=== PATIENT | male | born 1965 | race African-American/Black ===

== ENCOUNTER → 2020-03-12 13:50 | Outpatient (BNVA) | payer OTHER, SELFPAY | PROVIDERS: PCP Family Medicine; Visit Provider Physician Assistant | DX: Z96.652 Presence of left artificial knee joint (principal) | CPT/HCPCS: 99212 ==

== ENCOUNTER → 2020-04-09 12:55 | Outpatient (BNVA) | payer OTHER, SELFPAY | PROVIDERS: PCP Family Medicine; Referring Provider Family Medicine; Visit Provider Orthopaedic Surgery | DX: Z96.652 Presence of left artificial knee joint (principal) | CPT/HCPCS: 99212 ==

== ENCOUNTER 2020-09-16 08:34 | Outpatient (REF) | payer OTHER, SELFPAY ==
--- NOTE | ~2020-09-16 | XR_ITS ---
EXAMINATION: AP BILATERAL KNEE. LEFT KNEE. CLINICAL INFORMATION: Left knee pain COMPARISON: Left knee and AP knee descending 07/24/2019 TECHNIQUE: AP bilateral knee 1 view. Left knee 1 view. FINDINGS: AP BILATERAL KNEE: There is interval total left knee prosthesis prosthetic components in satisfactory alignment. No loosening seen. Mild loss of medial compartment joint space of right knee is noted. No bony erosive changes. LEFT KNEE: There is a total knee arthroplasty with prosthetic components in satisfactory alignment. No bony erosive changes. There is mild suprapatellar effusion. There is mild superior patellar spurring. XR/XR knee standing BI IMPRESSION: New total left knee arthroplasty in satisfactory alignment. There is mild suprapatellar effusion. Mild degenerative changes medial compartment right knee.
--- NOTE | ~2020-09-16 | XR_ITS ---
EXAMINATION: AP BILATERAL KNEE. LEFT KNEE. CLINICAL INFORMATION: Left knee pain COMPARISON: Left knee and AP knee descending 07/24/2019 TECHNIQUE: AP bilateral knee 1 view. Left knee 1 view. FINDINGS: AP BILATERAL KNEE: There is interval total left knee prosthesis prosthetic components in satisfactory alignment. No loosening seen. Mild loss of medial compartment joint space of right knee is noted. No bony erosive changes. LEFT KNEE: There is a total knee arthroplasty with prosthetic components in satisfactory alignment. No bony erosive changes. There is mild suprapatellar effusion. There is mild superior patellar spurring. XR/XR knee LT 2V IMPRESSION: New total left knee arthroplasty in satisfactory alignment. There is mild suprapatellar effusion. Mild degenerative changes medial compartment right knee.
== END 2020-09-16 08:35 | disposition home or self-care (01) ==
LOC: HO.HOSX 08:34
PROVIDERS: Visit Provider Orthopaedic Surgery
DX: T84.84XA Pain due to internal orthopedic prosthetic devices, implants and grafts, initial encounter (principal); M25.561 Pain in right knee; Z96.652 Presence of left artificial knee joint
CPT/HCPCS: 73560; 73565; 99212

== ENCOUNTER → 2021-02-13 09:34 | Outpatient (BNVA) | payer OTHER, SELFPAY | PROVIDERS: Visit Provider Orthopaedic Surgery | DX: Z47.1 Aftercare following joint replacement surgery (principal); Z96.652 Presence of left artificial knee joint | CPT/HCPCS: 99212 ==

== ENCOUNTER 2021-10-09 08:47 | Outpatient (REF) | payer OTHER, SELFPAY ==
--- NOTE | ~2021-10-09 | XR_ITS ---
EXAMINATION: XR LEFT KNEE CLINICAL INFORMATION: Pain left knee. COMPARISON: None. TECHNIQUE: AP bilateral knee standing. [place] view left knee, 1 view. FINDINGS: AP bilateral knee standing, 1 view reveals a total left knee prosthesis with the prosthetic components in satisfactory alignment. There is mild loss of medial compartment joint space right knee. No periarticular spurring or bony erosive changes. The soft tissues are normal. Patellofemoral view right knee reveals a total knee prosthesis in satisfactory alignment. No soft tissue swelling. No prosthetic loosening seen of left knee. XR/XR knee LT 2V IMPRESSION: Total left knee prosthesis in satisfactory alignment. No prosthetic loosening. The soft tissues are normal. Mild loss of medial compartment joint space right knee. No visible acute fracture or dislocation seen.
--- NOTE | ~2021-10-09 | XR_ITS ---
EXAMINATION: XR LEFT KNEE CLINICAL INFORMATION: Pain left knee. COMPARISON: None. TECHNIQUE: AP bilateral knee standing. [place] view left knee, 1 view. FINDINGS: AP bilateral knee standing, 1 view reveals a total left knee prosthesis with the prosthetic components in satisfactory alignment. There is mild loss of medial compartment joint space right knee. No periarticular spurring or bony erosive changes. The soft tissues are normal. Patellofemoral view right knee reveals a total knee prosthesis in satisfactory alignment. No soft tissue swelling. No prosthetic loosening seen of left knee. XR/XR knee RT 2V IMPRESSION: Total left knee prosthesis in satisfactory alignment. No prosthetic loosening. The soft tissues are normal. Mild loss of medial compartment joint space right knee. No visible acute fracture or dislocation seen.
== END 2021-10-09 08:48 | disposition home or self-care (01) ==
LOC: HO.HOSX 08:47
PROVIDERS: Visit Provider Orthopaedic Surgery
DX: M25.561 Pain in right knee (principal); Z96.652 Presence of left artificial knee joint
CPT/HCPCS: 73560; 99212

== ENCOUNTER 2021-10-12 09:38 | Outpatient (REF) | payer OTHER, SELFPAY ==
[2021-10-12 10:58] LABS: C Reactive Protein 0.07 mg/dL (< or = 0.50)
[2021-10-12 11:25] LABS: Erythrocyte Sedimentation Rate 5 MM/HR (0-15)
== END 2021-10-12 09:39 | disposition home or self-care (01) ==
LOC: HO.10HDL 09:38
PROVIDERS: Visit Provider Orthopaedic Surgery
DX: Z96.652 Presence of left artificial knee joint (principal)
CPT/HCPCS: 36415; 85652; 86140

== ENCOUNTER → 2021-10-29 10:14 | Outpatient (BNVA) | payer OTHER, SELFPAY | PROVIDERS: Visit Provider Orthopaedic Surgery | DX: Z47.1 Aftercare following joint replacement surgery (principal); Z96.652 Presence of left artificial knee joint | CPT/HCPCS: 99212 ==

== ENCOUNTER → 2021-12-08 11:00 | Outpatient (REF) | payer OTHER, SELFPAY ==
--- NOTE | ~2021-12-08 | NM_ITS ---
EXAMINATION: THREE PHASE BONE SCAN CLINICAL INFORMATION: Left knee replacement 2016, right ankle replacement 2014.. COMPARISON: No previous bone scan is available for comparison. Radiographs of the bilateral knees dated 10/09/2021 are available for comparison.. TECHNIQUE: Initial rapid sequence images were obtained over the knees in the anterior and posterior projections during the bolus injection of 33 mCi Tc-99m MDP. Static images of the whole-body with views of the knees in multiple projections as well as multiple views of the head, chest, and pelvis were then obtained 2.5 hours post injection. FINDINGS: Initial rapid sequence images show a mild increase in flow in the left knee. No significantly increased flow is present on the right. The visualized vascular flow is bilaterally symmetrical. Blood pool images obtained immediately following the flow study show a photopenic defect from the left knee prosthesis and very minimally increased activity in the left knee, slightly more prominently in the medial and patellar compartment regions. No abnormal blood pool activity is present in the right knee. Blood pool images were also obtained of the bilateral feet and ankles and there is diffusely increased blood pool activity of moderate severity present in the right ankle and this appears to surround a distal tibial photopenic defect likely from the patient's known right ankle prosthesis. The delayed static images of the whole body show: In the head, no significant abnormalities are present. In the thoracic cage and upper extremities, there is minimally increased activity in the sternoclavicular joints bilaterally, the costochondral junctions of both first ribs, the left acromioclavicular joint, the glenohumeral articulations bilaterally and in a mild focus in the lateral subacromial region of the left humeral head, all likely degenerative or arthritic. A small focus of retained activity at the radiopharmaceutical injection site in the right antecubital fossa In the spine, there are few small foci of mildly increased activity in the lower thoracic spine at the T8-T9 level and in the lower lumbar spine at the L4-L5 level. There is a subtle photopenic defect visualized anteriorly and posteriorly across the mid cervical spine likely due to a metallic necklace. In the pelvis, there is minimally increased activity in the superior lip of the right acetabulum likely arthritic. In the lower extremities, a photopenic defect from the left knee prosthesis is visualized. There is minimally increased activity in the left medial femoral condyle adjacent to the femoral component and even less intensely in the left medial tibial plateau adjacent to the tibial component. A mild diffuse increase in activity in the left patella is also noted. A small faint focus of increased activity in the patellar compartment of the right knee is also noted. A photopenic defect from the known right ankle prosthesis is visualized and there is moderately increased activity adjacent to this, most intensely in the medial aspect of the right ankle but surrounding the distal tibial aspect of the photopenic defect. There is also mildly increased activity laterally in a small focus in the proximal right foot, probably in the cuboid bone or base of the fourth or fifth metatarsal bone. This is much less intense than the more prominent activity in the right ankle previously described. A very faint focus of increased activity is present in the distal shaft of the left tibia. This is difficult to localize as lateral views of this region were not obtained, but this appears medullary in location or in the anterior cortex. The urinary bladder and faint visualization of both kidneys are noted. NM/NM bone 3 phase IMPRESSION: 1. Only mildly increased activity is present adjacent to the left knee prosthesis, most consistent with a well-healed prosthesis. There is no strong evidence to suggest prosthetic loosening, infection, or adjacent fracture. 2. A faint focus of increased activity in the distal shaft of the left tibia at approximately the junction of the middle and distal thirds is present and this is nonspecific. This may be in the anterior cortex or medullary region and is very likely a nonaggressive abnormality, possibly an old bone infarct or enchondroma or less likely because it does not appear to be in the medial cortex, a healing stress fracture. This could be further characterized with plain radiographs of the left tibia, if clinically indicated.. 3. There is diffusely increased activity adjacent to the right ankle prosthesis on the delayed static images and this is not likely due to normal bony remodeling because of its marked intensity. The findings suggest hardware loosening or infection. Flow images of the ankles could not be obtained because clinical interest was directed toward the left knee prosthesis and these are too far to both be included in the [id number] of the dynamic flow images. Clinical correlation is recommended, and these right ankle abnormalities could be further characterized with plain radiographs, if clinically indicated. 4. A few additional mild nonspecific abnormalities are noted as described above and these are all likely arthritic or traumatic in etiology. None of these abnormalities is strongly suspicious for metastatic disease.
== END ==
LOC: HO.NUCMED 11:00
PROVIDERS: Visit Provider Orthopaedic Surgery
DX: Z96.652 Presence of left artificial knee joint (principal)
CPT/HCPCS: 78315; A9503

== ENCOUNTER → 2022-01-07 15:17 | Outpatient (BNVA) | payer OTHER, SELFPAY | PROVIDERS: PCP Family Medicine; Visit Provider Orthopaedic Surgery | DX: T84.84XA Pain due to internal orthopedic prosthetic devices, implants and grafts, initial encounter (principal); Z96.652 Presence of left artificial knee joint | CPT/HCPCS: 99212 ==